=== PATIENT | male | born 2000 | race Two or more races ===

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

== ENCOUNTER 2024-07-12 08:33 | Emergency (ER) | payer MEDICAID, OTHER ==
[~2024-07-12] VITALS: Ht 170.2 cm; Wt 116.0 kg
[~2024-07-12 08:33] MED LIST: FAMO20TA8 MT; MAG-55 MT
[2024-07-12 08:35] VITALS: O2SAT 96
[2024-07-12 08:55] LABS: CLARITY URINE CLEAR (CLEAR); COLOR URINE YELLOW (YELLOW); GLUCOSE URINE NEGATIVE (NEGATIVE); KETONES URINE NEGATIVE (NEGATIVE); LEUKOCYTE ESTERASE URINE NEGATIVE (NEGATIVE); NITRITE URINE NEGATIVE (NEGATIVE); OCCULT BLOOD URINE NEGATIVE (NEGATIVE); PROTEIN URINE NEGATIVE (NEGATIVE); SPECIFIC GRAVITY URINE 1.018 (1.005-1.030); UROBILINOGEN URINE 0.2 E.U./dL (0.2-1.0)
[2024-07-12 09:00] LABS: BASOPHILS % 0.4 % (0.0-2.0); EOSINOPHILS % 0.7 % (0.0-5.0); HEMATOCRIT. 46.5 % (42.0-52.0); HEMOGLOBIN. 15.6 g/dL (14.0-18.0); LYMPHOCYTES % 15.6 % (20.0-50.0); MEAN CORPUSCULAR HEMOGLOBIN 28.2 pg (28.0-32.0); MEAN CORPUSCULAR HGB CONC 33.5 g/dL (31.0-37.0); MEAN CORPUSCULAR VOLUME 84.3 fL (80.0-94.0); MEAN PLATELET VOLUME 8.7 fl (7.4-10.4); MONOCYTES % 4.9 % (2.0-8.0); NEUTROPHILS % 78.4 % (40.0-76.0); PLATELET 357 x1000/uL (130-400); RED BLOOD CELL COUNT 5.52 mill/uL (4.7-6.1); WHITE BLOOD COUNT 15.1 x1000/uL (4.5-11.0)
[2024-07-12 09:10] LABS: CHLORIDE 104 mEq/L (98-107); POTASSIUM 4.4 mEq/L (3.5-5.1); SODIUM 139 mEq/L (136-145)
[2024-07-12 09:11] LABS: CARBON DIOXIDE 29 mEq/L (21-32)
[2024-07-12 09:12] LABS: CALCIUM 10.4 mg/dL (8.7-10.4)
[2024-07-12] MEDS: ONDANSETRON 4MG ODT PO ONE (09:15)
[2024-07-12] MEDS: FAMOTIDINE 20MG TABLET PO ONE (09:15)
[2024-07-12] MEDS: VISCOUS LIDOCAINE 2% 15 ML UDC PO ONE (09:15)
[2024-07-12] MEDS: DICYCLOMINE 10 MG/5 ML ORAL SYR PO ONE (09:15)
[2024-07-12] MEDS: MAGNESIUM/ALUMINUM HYDROXIDE/SIMETHICONE 30ML UDC PO ONE (09:15)
[2024-07-12 09:16] LABS: CREATININE 0.7 mg/dL (0.6-1.3); GLUCOSE 111 mg/dL (70-105)
[2024-07-12 09:17] LABS: UREA NITROGEN BLOOD 9 mg/dL (9-23)
[2024-07-12 09:18] LABS: ALANINE AMINOTRANSFERASE 65 IU/L (10-49); ALBUMIN 4.8 g/dL (3.2-4.8); ASPARTATE AMINOTRANSFERASE 30 IU/L (<34)
[2024-07-12 09:19] LABS: BILIRUBIN DIRECT 0.1 mg/dL (<=3.0); BILIRUBIN TOTAL 0.4 mg/dL (0.1-1.0); PROTEIN TOTAL 8.4 g/dL (6.0-8.3)
[2024-07-12] MEDS ORDERED: PROT20 MT (11:02)
[2024-07-12] MEDS ORDERED: MAG-55 MT (11:02)
[2024-07-12 11:10] VITALS: BP 130/98; PULSE 96; RESP 18; TEMP 37; O2SAT 96
== END 2024-07-12 11:34 | disposition home or self-care (01) ==
LOC: ER 08:33
DX: K29.70 Gastritis, unspecified, without bleeding (principal); R10.9 Unspecified abdominal pain; K76.0 Fatty (change of) liver, not elsewhere classified; Z79.899 Other long term (current) drug therapy; Z90.49 Acquired absence of other specified parts of digestive tract
CPT/HCPCS: 99284; 76705; 80076; 80048; 81003; 83690; 85025; 36415; Q0162